=== PATIENT | female | born 1945 | race African-American/Black ===

== ENCOUNTER 2018-11-17 05:30 | Inpatient (IN) | payer OTHER ==
[2018-11-17] VITALS (26 sets, daily range): BP systolic 105–136; BP diastolic 51–69; PULSE 70–96; RESP 13–24; Ht 177.8 cm; Wt 90.7 kg
[~2018-11-17] VITALS: Ht 177.8 cm; Wt 90.7 kg
[~2018-11-17 05:30] MED LIST: CEFAZOLIN 2 GM/50 ML (PMX) 50 ML IVPB ONE; LACTATED RINGER'S 1,000 ML IV* ONE
[2018-11-17] MEDS ORDERED: METF100010 PO (06:58)
[2018-11-17] MEDS ORDERED: ACAR50TA PO (06:58)
[2018-11-17] MEDS ORDERED: ATOR10TA65 PO (06:59)
[2018-11-17] MEDS ORDERED: GELATIN SIZE 100 SPONGE ONE (06:59)
[2018-11-17] MEDS ORDERED: POLYMYXIN/BACITRACIN 1L IRRIG ONE (06:59)
[2018-11-17] MEDS ORDERED: BUPIVACAINE 0.25% (MPF) 30 ML INJ ONE (06:59)
[2018-11-17] MEDS ORDERED: SURGIFOAM POWDER 1 GM KIT ONE (06:59)
[2018-11-17] MEDS ORDERED: LISI10TA2 PO (06:59)
[2018-11-17] MEDS ORDERED: GLIP10TA14 PO (06:59)
[2018-11-17] MEDS ORDERED: THROMBIN (BOVINE) 5,000 UNIT VIAL TP ONE (06:59)
[2018-11-17] MEDS ORDERED: BUPIVACAINE 0.25%/EPI (SDV) 30 ML INJ ONE (06:59)
--- NOTE | 2018-11-17 07:10 | PREAC ---
Date/Time of Note Date/Time of Note DATE: 11/17/18 TIME: 07:05 Anesthesia Eval and Record Evaluation Time Pre-Procedure Interview DATE: 11/17/18 TIME: 07:05 Age 73 Sex female NPO: 8 hrs Preoperative diagnosis lumbar spinal stenosis L4-L5 Planned procedure Bilateral decompression laminectomy L4-L5 Past Medical History Past Medical History: Includes Cardio: HTN, Dyslipidemia Endo: Diabetes Renal: Other (left nephrectomy for renal CA on Lisinopril for CA) Surgery & Anesthesia Issues No known issue Meds Anticoagulation: No Beta Asad within 24 hr: No Reason Beta Asad not given: Pt. not on B-Asad Reported Medications Lisinopril* (Lisinopril*) 10 Mg Tablet, 10 MG PO DAILY, #30 TAB 11/17/18 Atorvastatin Calcium (Atorvastatin Calcium) 10 Mg Tablet, 10 MG PO QHS, #30 TAB 11/17/18 Glipizide* (Glipizide*) 10 Mg Tablet, 20 MG PO BID, TAB 11/17/18 Acarbose* (Precose*) 50 Mg Tablet, 50 MG PO BID WITH MEALS, TAB 11/17/18 Metformin Hcl* (Metformin Hcl*) 1,000 Mg Tablet, 1000 MG PO WITH BREAKFAST DINNE, #60 TAB 11/17/18 Current Medications Lactated Ringer's 1,000 ml @ 25 mls/hr Q24H ONCE IV* ; Start 11/17/18 at 05:30; Stop 11/18/18 at 05:29 Meds reviewed: Yes Allergies Coded Allergies: No Known Allergy (Unverified , 11/17/18) Allergies Reviewed: Yes Labs/Studies Labs Reviewed: Reviewed by anesthesiologist test: N/A Studies: ECG Pre-procedure Exam Airway: Adequate mouth opening, Adequate thyromental dist Mallampati: Mallampati II Teeth: Normal Lung: Normal Heart: Normal ASA Physical Status ASA physical status: 3 Emergency: None Planned Anesthetic General/MAC: ETT Planned Pain Management Parenteral pain med, Local by surgeon Pre-operative Attestations Prior to commencing anesthesia and surgery, the patient was re-evaluated, there was verification of: *The patient's identity *The results of appropriate recent lab work and preoperative vital signs *The above evaluation not changing prior to induction *Anesthetic plan, risk benefits, alternative and complications discussed with pa olvinnt/family; questions answered; patient/family understands, accepts and wishes to proceed. ALTA LEMUS FIBER LOCKING SUPERVISOR Nov 17, 2018 07:10
--- NOTE | 2018-11-17 07:36 | HPN ---
Date/Time of Note Date/Time of Note DATE: 11/17/18 TIME: 07:36 Interval H&P Admission Note Pt. seen H&P reviewed: No system changes JACKIE PEÑA MD Nov 17, 2018 07:36
[2018-11-17] MEDS ORDERED: FENTAnyl 50 MCG/ML VIAL ONE ×2 (07:41→07:52)
[2018-11-17] MEDS: SOD CHLORIDE 0.9% 1,000 ML IV SCH ×2 (08:00→19:10)
[2018-11-17] MEDS ORDERED: HYDROmorphONE 2 MG/ML SYG ONE (08:20)
[2018-11-17] MEDS ORDERED: FAMOTIDINE 20 MG INJ ONE (09:44)
[2018-11-17] MEDS ORDERED: LIDOCAINE 2% (SDV) 5 ML INJ ONE (09:44)
[2018-11-17] MEDS ORDERED: ROCURONIUM 50 MG INJ ONE (09:44)
[2018-11-17] MEDS ORDERED: PROPOFOL 40 ML ONE (09:44)
[2018-11-17] MEDS ORDERED: ONDANSETRON 4 MG INJ ONE (09:44)
[2018-11-17] MEDS ORDERED: SUCCINYLCHOLINE CHLORIDE 100 MG/5 ML SYG IV ONE (09:44)
[2018-11-17] MEDS ORDERED: DEXAMETHASONE 4 MG/ML 5 ML INJ ONE (09:44)
[2018-11-17] MEDS ORDERED: NEOSTIGMINE 3 MG/3 ML SYRINGE ONE (09:44)
[2018-11-17] MEDS ORDERED: GLYCOPYRROLATE 0.4 MG INJ ONE (09:44)
[2018-11-17] MEDS ORDERED: PHENYLephrine (100 MCG/ML) 10ML SYG ONE (10:50)
[2018-11-17] MEDS ORDERED: EPHEDrine 25 MG/5 ML SYG ONE (10:50)
--- NOTE | 2018-11-17 11:21 | OPR ---
Date/Time of Note Date/Time of Note DATE: 11/17/18 TIME: 11:15 Operative Report Free Text/Dictation DATE OF OPERATION: 11/17/2018 PREOPERATIVE DIAGNOSES: 1. L3-4 spinal stenosis with neurogenic claudication 2. L4-5 spinal stenosis with neurogenic claudication POSTOPERATIVE DIAGNOSES: 1. L3-4 spinal stenosis with neurogenic claudication 2. L4-5 spinal stenosis with neurogenic claudication OPERATION PERFORMED: 1. L3-4 bilateral laminectomy, medial facetectomy, and foraminotomy 2. L4-5 bilateral laminectomy, medial facetectomy, and foraminotomy SURGEON: Durga Chandler MD COVER MAT MACHINE OPERATOR: Pato Chester MD ANESTHESIA: General endotracheal ESTIMATED BLOOD LOSS: 75 mL SURGICAL INDICATION: The patient is a 73 year-old female who presents with a chronic history of worsening bilateral lower extremity pain that is exacerbated with walking and relieved with rest and lumbar flexion. The patient was unable to ambulate significant distances secondary to their pain. Risks, benefits, and alternatives to a decompressive procedure including but not exclusive of risks of bleeding, infection, nerve injury, cauda equina syndrome, iatrogenic instability, dural tear, myocardial infarction, stroke, pulmonary embolism were explained to the patient, and she wished to proceed. DESCRIPTION OF TECHNIQUE: The patient was identified in the preoperative area and taken to the operating room. Rapid induction of general endotracheal anesthesia was performed. Patient was given 2 g of cefazolin for prophylaxis. The patient was then placed in the prone position on the Apolinar table on top of a Triston frame with all bony prominences well padded. The back was prepped and draped in usual sterile manner. Using a spinal needle and intraoperative fluoroscopy, the L4-5 level was clearly identified. The skin was injected using 0.25% Marcaine with epinephrine. Longitudinal midline incision was then created using a 10 blade. Further dissection through soft tissue was performed using electrocautery down to the spinous processes bilaterally. Dissection was taken down the bilateral lamina and over the facet joint capsule. A self-retaining retractor was applied. Again, intraoperative fluoroscopy confirmed the level. A rongeur was used to remove the L4 spinous process and the interspinous ligaments. We identified the interlaminar window. The microscope was brought into use for microdissection. The high-speed bur was used to thin the L4 lamina. Kerrison rongeurs were then used to resect a the lamina, and a portion of the bilateral medial facets and the bone overlying the foramens. Ligamentum flavum was also resected using the Kerrison rongeurs. Care was taken to protect the thecal sac throughout the decompressive procedure. Palpation with a ball-tip probe did not reveal any further stenosis in the central, subarticular, or foraminal areas. The bilateral L4 and L5 pedicles were palpated using a shreya to ensure a pedicle to pedicle decompression. The exiting L4 nerve root and traversing L5 nerve roots were both directly visualized and noted to be decompressed. The cephalad and caudad extent of the decompression were also confirmed using ball-tip probes and intraoperative fluoroscopy. Dissection was the extended proximally to the L3-4 level. A self-retaining retractor was applied. Again, intraoperative fluoroscopy confirmed the level. A rongeur was used to remove a portion of the L3 spinous process and the interspinous ligaments. We identified the interlaminar window. The microscope was brought into use for microdissection. The high-speed bur was used to thin the L3 lamina. Kerrison rongeurs were then used to resect a the lamina, and a portion of the bilateral medial facets and the bone overlying the foramens. Ligamentum flavum was also resected using the Kerrison rongeurs. Care was taken to protect the thecal sac throughout the decompressive procedure. Palpation with a ball-tip probe did not reveal any further stenosis in the central, subarticular, or foraminal areas. The bilateral L3 and L4 pedicles were palpated using a shreya to ensure a pedicle to pedicle decompression. The exiting L3 nerve root and traversing L4 nerve roots were both directly visualized and noted to be decompressed. The cephalad and caudad extent of the decompression were also confirmed using ball-tip probes and intraoperative fluoroscopy. The wound was irrigated copiously using normal saline. Meticulous attention was paid toward hemostasis using bipolar cautery, FloSeal and thrombin. Care was taken to remove all FloSeal prior to wound closure. The fascia was then closed using 0 Vicryl in interrupted fashion. A medium hemovac was placed. Subcutaneous tissue was closed using 2-0 Vicryl in interrupted fashion. Skin was closed using a running 4-0 Monocryl stitch. The wound was dressed using Dermabond, sterile gauze and Tegaderm. The patient was returned to the supine position. They were extubated immediately postoperatively and taken to the recovery room in stable condition. COMPLICATIONS: None. Procedure Date: Nov 17, 2018 Preoperative Diagnosis 1. L3-4 spinal stenosis with neurogenic claudication 2. L4-5 spinal stenosis with neurogenic claudication Postoperative Diagnosis 1. L3-4 spinal stenosis with neurogenic claudication 2. L4-5 spinal stenosis with neurogenic claudication Operation/Procedure Performed 1. L3-4 bilateral laminectomy, medial facetectomy, and foraminotomy 2. L4-5 bilateral laminectomy, medial facetectomy, and foraminotomy Surgeon see signature line Track Repair Laborer Pato Chester MD Anesthesia Type: general Estimated Blood Loss: 50 - 100 ml's Transfusion none Specimen none Grafts/Implants none Complications none Pt Condition Post Procedure: stable Disposition: PACU Procedure Description DESCRIPTION OF TECHNIQUE: The patient was identified in the preoperative area and taken to the operating room. Rapid induction of general endotracheal anesthesia was performed. Patient was given 2 g of cefazolin for prophylaxis. The patient was then placed in the prone position on the Apolinar table on top of a Triston frame with all bony prominences well padded. The back was prepped and draped in usual sterile manner. Using a spinal needle and intraoperative fluoroscopy, the L4-5 level was clearly identified. The skin was injected using 0.25% Marcaine with epinephrine. Longitudinal midline incision was then created using a 10 blade. Further dis section through soft tissue was performed using electrocautery down to the spinous processes bilaterally. Dissection was taken down the bilateral lamina and over the facet joint capsule. A self-retaining retractor was applied. Again, intraoperative fluoroscopy confirmed the level. A rongeur was used to remove the L4 spinous process and the interspinous ligaments. We identified the interlaminar window. The microscope was brought into use for microdissection. The high-speed bur was used to thin the L4 lamina. Kerrison rongeurs were then used to resect a the lamina, and a portion of the bilateral medial facets and the bone overlying the foramens. Ligamentum flavum was also resected using the Kerrison rongeurs. Care was taken to protect the thecal sac throughout the decompressive procedure. Palpation with a ball-tip probe did not reveal any further stenosis in the central, subarticular, or foraminal areas. The bilateral L4 and L5 pedicles were palpated using a shreya to ensure a pedicle to pedicle decompression. The exiting L4 nerve root and traversing L5 nerve roots were both directly visualized and noted to be decompressed. The cephalad and caudad extent of the decompression were also confirmed using ball-tip probes and intraoperative fluoroscopy. Dissection was the extended proximally to the L3-4 level. A self-retaining retractor was applied. Again, intraoperative fluoroscopy confirmed the level. A rongeur was used to remove a portion of the L3 spinous process and the interspinous ligaments. We identified the interlaminar window. The microscope was brought into use for microdissection. The high-speed bur was used to thin the L3 lamina. Kerrison rongeurs were then used to resect a the lamina, and a portion of the bilateral medial facets and the bone overlying the foramens. Ligamentum flavum was also resected using the Kerrison rongeurs. Care was taken to protect the thecal sac throughout the decompressive procedure. Palpation with a ball-tip probe did not reveal any further stenosis in the central, subarticular, or foraminal areas. The bilateral L3 and L4 pedicles were palpated using a shreya to ensure a pedicle to pedicle decompression. The exiting L3 nerve root and traversing L4 nerve roots were both directly visualized and noted to be decompressed. The cephalad and caudad extent of the decompression were also confirmed using ball-tip probes and intraoperative fluoroscopy. The wound was irrigated copiously using normal saline. Meticulous attention was paid toward hemostasis using bipolar cautery, FloSeal and thrombin. Care was taken to remove all FloSeal prior to wound closure. The fascia was then closed using 0 Vicryl in interrupted fashion. A medium hemovac was placed. Subcutaneous tissue was closed using 2-0 Vicryl in interrupted fashion. Skin was closed using a running 4-0 Monocryl stitch. The wound was dressed using Dermabond, sterile gauze and Tegaderm. The patient was returned to the supine position. They were extubated immediately postoperatively and taken to the recovery room in stable condition. COMPLICATIONS: None. DURGA CHANDLER MD Nov 17, 2018 11:21
[2018-11-17] MEDS ORDERED: HYDROCODONE/APAP (5/325) TAB PO PRN (11:30)
[2018-11-17] MEDS ORDERED: AL HYDROX/MG HYDROX/SIMETH 30 ML CUP PO PRN (11:30)
[2018-11-17] MEDS ORDERED: NALOXONE (0.4 MG/ML) INJ IV PRN (11:30)
[2018-11-17] MEDS ORDERED: ACETAMINOPHEN 325 MG TAB PO PRN (11:30)
[2018-11-17] MEDS ORDERED: ONDANSETRON 4 MG INJ IV PRN (11:30)
[2018-11-17] MEDS ORDERED: NACL 0.9% 3 ML SYG IV SCH (11:30)
[2018-11-17] MEDS ORDERED: PROCHLORPERAZINE 10 MG TAB PO PRN (11:30)
--- NOTE | 2018-11-17 11:30 | PAC ---
Date/Time of Note Date/Time of Note DATE: 11/17/18 TIME: 11:29 Post-Anesthesia Notes Post-Anesthesia Note Last documented vital signs 11:23 113/53 Sp02 100% HR 82 RR 14 T 99.2F Activity: WNL Respiratory function: WNL Cardiovascular function: WNL Mental status: Baseline Pain reasonably controlled: Yes Hydration appropriate: Yes Nausea/Vomiting absent: Yes ALTA LEMUS CRNA Nov 17, 2018 11:30
[2018-11-17] MEDS: HYDROmorphONE 0.2 MG/ML PCA IV SCH (11:52)
[2018-11-17] MEDS ORDERED: MEPERIDINE 25 MG INJ ONE (12:17)
[2018-11-17] MEDS ORDERED: MEPERIDINE 25 MG INJ IV PRN (12:30)
[2018-11-17] MEDS ORDERED: HYDROmorphONE 1 MG/5 ML IV SYRINGE IV PRN ×3 (12:30)
[2018-11-17] MEDS: CEFAZOLIN 1 GM/50 ML (PMX) 50 ML IVPB SCH ×3 (12:30→23:44)
--- NOTE | 2018-11-17 13:10 | PN ---
Date/Time of Note Date/Time of Note DATE: 11/17/18 TIME: 13:07 Assessment/Plan VTE Prophylaxis SCD applied (from Nsg): Yes Pharmacological prophylaxis: NA/contraindicated Pharm contraindication: surgical contra Lines/Catheters IV Catheter Type (from Nrsg): Peripheral IV Assessment/Plan Results 24hrs Laboratory Tests Test 11/17/18 07:05 11/17/18 11:28 Bedside Glucose 110 100 Subjective 24 Hr Interval Summary Free Text/Dictation 73 yr old woman, seen by me preop. now post op back surgery with decompression as noted in op report. drains in. seen on arrival to floor, co pain. moves all fouir, ehl appear strong. vs ok. hx positive for hbp and diabetes, on oral agents.preop ha1c elevated at 8.1 will return to re evaluate later today Musculoskeletal: back pain Exam/Review of Systems Exam Vitals Vital Signs Date Temp Pulse Resp B/P (MAP) Pulse Ox O2 O2 Flow FiO2 Time Delivery Rate 11/17/18 92 20 111/55 99 Nasal 12:43 (73) Cannula 11/17/18 99.2 11:28 Results Results 24hrs Laboratory Tests Test 11/17/18 07:05 11/17/18 11:28 Bedside Glucose 110 100 Medications Medication Current Medications Sodium Chloride 1,000 ml @ 25 mls/hr Q24H IV ; Start 11/17/18 at 08:00; Stop 11/17/18 at 23:59 Acetaminophen/ Hydrocodone Bitart ([place] (5/325)) 1 tab Q4H PRN PO .PAIN 1-5; Start 11/17/18 at 11:30 Acetaminophen/ Hydrocodone Bitart ([place] (5/325)) 2 tab Q4H PRN PO .PAIN 6-10; Start 11/17/18 at 11:30 Cefazolin Sodium 50 ml @ 100 mls/hr Q6 IVPB Last administered on 11/17/18at 12:30; Admin Dose 100 MLS/HR; Start 11/17/18 at 12:00; Stop 11/18/18 at 06:29 Prochlorperazine (Compazine) 10 mg Q4H PRN PO NAUSEA/VOMITING; Start 11/17/18 at 11:30 Ondansetron HCl (Zofran Inj) 4 mg Q6H PRN IV NAUSEA/VOMITING Last administered on 11/17/18at 12:33; Admin Dose 4 MG; Start 11/17/18 at 11:30 Al Hydrox/Mg Hydrox/Simethicone (Mag-Al Plus) 15 ml Q4H PRN PO .CONSTIPATION; Start 11/17/18 at 11:30 Docusate Sodium (Colace) 100 mg BID PO ; Start 11/18/18 at 09:00 Acetaminophen (Tylenol Tab) 650 mg Q4H PRN PO TEMP GREATER THAN 101F OR VAZQUEZ; Start 11/17/18 at 11:30 IV Flush (NS 3 ml) 3 ml PER PROTOCOL IV ; Start 11/17/18 at 11:30 Hydromorphone HCl (Dilaudid JUNIOR ENGINEER) Q4PCA IV Last administered on 11/17/18at 11:52; Admin Dose 0.2 MG; Start 11/17/18 at 11:30 Naloxone HCl (Narcan) 0.2 mg Q2M PRN IV RR 8 BREATHS/MIN OR LESS; Start 11/17/18 at 11:30 Hydromorphone HCl (Dilaudid) 0.2 mg PACU PRN IV MILD PAIN 1-3; Start 11/17/18 at 12:30; Stop 11/17/18 at 16:00 Hydromorphone HCl (Dilaudid) 0.4 mg PACU PRN IV MOD PAIN 4-6; Start 11/17/18 at 12:30; Stop 11/17/18 at 16:00 Hydromorphone HCl (Dilaudid) 0.6 mg PACU PRN IV SEVERE PAIN 7-10 Last administered on 11/17/18at 12:37; Admin Dose 0.6 MG; Start 11/17/18 at 12:30; Stop 11/17/18 at 16:00 Meperidine HCl (Demerol) 25 mg PACU ORDER PRN IV .RIGORS Last administered on 11/17/18at 12:32; Admin Dose 25 MG; Start 11/17/18 at 12:30; Stop 11/17/18 at 16:00 JERRY ENCARNACION MD Nov 17, 2018 13:10
--- NOTE | 2018-11-17 15:56 | PN ---
Date/Time of Note Date/Time of Note DATE: 11/17/18 TIME: 15:54 Assessment/Plan VTE Prophylaxis Risk score (from Nsg)>0 risk: 6 SCD applied (from Nsg): Yes Pharmacological prophylaxis: NA/contraindicated Pharm contraindication: surgical contra Lines/Catheters IV Catheter Type (from Nrsg): Peripheral IV Urinary Cath still in place: Yes Reason Cath still needed: other (indicate) (post op lami) Assessment/Plan Results 24hrs Laboratory Tests Test 11/17/18 07:05 11/17/18 11:28 Bedside Glucose 110 100 Subjective 24 Hr Interval Summary Free Text/Dictation late addition meds reconciled, accucheck bid ac, no coverage as is on rel high dose gypizide from usual md...will follow and see she is alert now, not much pain with oral therapist. preop leg pain mostly resolved. vs ok. walked with pt. good strength ehl bilaterally doing well postg op Musculoskeletal: bone/joint pain Exam/Review of Systems Exam Vitals Vital Signs Date Temp Pulse Resp B/P (MAP) Pulse Ox O2 O2 Flow FiO2 Time Delivery Rate 11/17/18 98.2 96 19 121/57 98 Nasal 13:16 (78) Cannula Results Results 24hrs Laboratory Tests Test 11/17/18 07:05 11/17/18 11:28 Bedside Glucose 110 100 Medications Medication Current Medications Sodium Chloride 1,000 ml @ 25 mls/hr Q24H IV ; Start 11/17/18 at 08:00; Stop 11/17/18 at 23:59 Acetaminophen/ Hydrocodone Bitart ([place] (5/325)) 1 tab Q4H PRN PO .PAIN 1-5; Start 11/17/18 at 11:30 Acetaminophen/ Hydrocodone Bitart ([place] (5/325)) 2 tab Q4H PRN PO .PAIN 6-10; Start 11/17/18 at 11:30 Cefazolin Sodium 50 ml @ 100 mls/hr Q6 IVPB Last administered on 11/17/18at 12:30; Admin Dose 100 MLS/HR; Start 11/17/18 at 12:00; Stop 11/18/18 at 06:29 Prochlorperazine (Compazine) 10 mg Q4H PRN PO NAUSEA/VOMITING; Start 11/17/18 at 11:30 Ondansetron HCl (Zofran Inj) 4 mg Q6H PRN IV NAUSEA/VOMITING Last administered on 11/17/18at 12:33; Admin Dose 4 MG; Start 11/17/18 at 11:30 Al Hydrox/Mg Hydrox/Simethicone (Mag-Al Plus) 15 ml Q4H PRN PO .CONSTIPATION; Start 11/17/18 at 11:30 Docusate Sodium (Colace) 100 mg BID PO ; Start 11/18/18 at 09:00 Acetaminophen (Tylenol Tab) 650 mg Q4H PRN PO TEMP GREATER THAN 101F OR VAZQUEZ; Start 11/17/18 at 11:30 IV Flush (NS 3 ml) 3 ml PER PROTOCOL IV ; Start 11/17/18 at 11:30 Hydromorphone HCl (Dilaudid OIL BAY TECHNICIAN) Q4PCA IV Last administered on 11/17/18at 11:52; Admin Dose 0.2 MG; Start 11/17/18 at 11:30 Naloxone HCl (Narcan) 0.2 mg Q2M PRN IV RR 8 BREATHS/MIN OR LESS; Start 11/17/18 at 11:30 Hydromorphone HCl (Dilaudid) 0.2 mg PACU PRN IV MILD PAIN 1-3; Start 11/17/18 at 12:30; Stop 11/17/18 at 16:00 Hydromorphone HCl (Dilaudid) 0.4 mg PACU PRN IV MOD PAIN 4-6; Start 11/17/18 at 12:30; Stop 11/17/18 at 16:00 Hydromorphone HCl (Dilaudid) 0.6 mg PACU PRN IV SEVERE PAIN 7-10 Last administered on 11/17/18at 12:37; Admin Dose 0.6 MG; Start 11/17/18 at 12:30; Stop 11/17/18 at 16:00 Meperidine HCl (Demerol) 25 mg PACU ORDER PRN IV .RIGORS Last administered on 11/17/18at 12:32; Admin Dose 25 MG; Start 11/17/18 at 12:30; Stop 11/17/18 at 16:00 Acarbose (Precose) 50 mg BID WITH MEALS PO ; Start 11/17/18 at 17:55; Status UNV Atorvastatin Calcium (Lipitor) 10 mg QHS PO ; Start 11/17/18 at 21:00; Status UNV Glipizide (Glucotrol) 20 mg BID PO ; Start 11/17/18 at 21:00; Status UNV Lisinopril (Zestril) 10 mg DAILY PO ; Start 11/18/18 at 09:00; Status UNV Metformin HCl (Glucophage) 1,000 mg WITH BREAKFAST DINNE PO ; Start 11/17/18 at 17:55; Status UNV Diagnostic Test (Pha) (Accu-Chek) 1 ea AC BREAKFAST DINNER XX ; Start 11/17/18 at 17:25; Status UNV JERRY ENCARNACION MD Nov 17, 2018 15:56
[2018-11-17] MEDS ORDERED: GLUCAGON 1 MG INJ IM PRN (17:00)
[2018-11-17] MEDS ORDERED: GLUCOSE GEL 15 GRAM TUBE BUCCAL PRN (17:00)
[2018-11-17] MEDS ORDERED: GLUCOSE GEL 15 GRAM TUBE PO PRN ×2 (17:00)
[2018-11-17] MEDS ORDERED: DEXTROSE 50% 50 ML SYRINGE IV PRN ×2 (17:00)
[2018-11-17] MEDS: ACCU-CHEK XX SCH (17:59)
[2018-11-17] MEDS: metFORMIN 500 MG TAB PO SCH (18:09)
[2018-11-17] MEDS: ACARBOSE 50 MG TAB PO SCH (18:49)
[2018-11-17] MEDS ORDERED: glipiZIDE 10 MG TAB PO SCH (21:00)
[2018-11-17] MEDS: ATORVASTATIN 10 MG TAB PO SCH (21:09)
[2018-11-18 00:11] VITALS: BP 102/56; PULSE 76; RESP 18
[2018-11-18] MEDS: HYDROmorphONE 0.2 MG/ML PCA IV SCH (01:18)
[2018-11-18 04:19] VITALS: BP 104/54; PULSE 74; RESP 18
[2018-11-18] MEDS: CEFAZOLIN 1 GM/50 ML (PMX) 50 ML IVPB SCH (05:04)
[2018-11-18 07:25] VITALS: BP 105/53; PULSE 78; RESP 18
[2018-11-18] MEDS: metFORMIN 500 MG TAB PO SCH ×2 (09:05→17:51)
[2018-11-18] MEDS: DOCUSATE SODIUM 100 MG CAP PO SCH ×2 (09:06→20:06)
[2018-11-18] MEDS: glipiZIDE 10 MG TAB PO SCH ×2 (09:06→17:51)
[2018-11-18] MEDS: ACARBOSE 50 MG TAB PO SCH ×2 (09:06→17:51)
[2018-11-18] MEDS: LISINOPRIL 10 MG TAB PO SCH (09:07)
[2018-11-18] MEDS: ACCU-CHEK XX SCH ×2 (09:07→17:50)
[2018-11-18] MEDS: HYDROCODONE/APAP (5/325) TAB PO PRN ×3 (10:26→18:29)
--- NOTE | 2018-11-18 13:28 | CONS ---
Consultation Date/Type/Reason Admit Date/Time Nov 17, 2018 at 05:30 Initial Consult Date Date/Time of Note DATE: 11/18/18 TIME: 13:26 24 HR Interval Summary Free Text/Dictation S: 73 yo Female POD#1 s/p L3-L5 decompression. No acute events. PROBATION SUPERVISOR has been D/C. Working well with PT. O: Vital Signs Date Temp Pulse Resp B/P (MAP) Pulse Ox O2 O2 Flow FiO2 Time Delivery Rate 11/18/18 18 10:40 11/18/18 98.4 78 105/53 99 07:25 (70) 11/17/18 Nasal 2.0 16:00 Cannula Gen: AAOx3, NAD Spine: 5/5 b/l TA/GS/EHL, +SILT L3-S1, dressing C/D/I A/P:73 yo Female POD#1 s/p L3-L5 decompression. 1. Drain w/ 160 cc output will likely d/c cj 2. pain control w/ PO Yeoman 3. Dispo planning tomorrow oncle cleared by PT and drain D/C Exam/Review of Systems Exam Vitals Vital Signs Date Temp Pulse Resp B/P (MAP) Pulse Ox O2 O2 Flow FiO2 Time Delivery Rate 11/18/18 18 10:40 11/18/18 98.4 78 105/53 99 07:25 (70) 11/17/18 Nasal 2.0 16:00 Cannula Intake and Output 11/17/18 11/17/18 11/18/18 1515:00 23:00 07:00 IntakeIntake Total 1000 ml 650 ml 100 ml OutputOutput Total 317 ml 100 ml 940 ml BalanceBalance 683 ml 550 ml -840 ml Results Result Diagram: 11/18/18 0427 11/18/18 0427 Results 24hrs Laboratory Tests Test 11/17/18 17:54 11/17/18 21:15 11/18/18 04:27 11/18/18 07:52 Bedside Glucose 235 H 220 White Blood Count 13.6 H Red Blood Count 3.88 L Hemoglobin 10.9 L Hematocrit 34.4 L Mean Corpuscular 88.7 Volume Mean Corpuscular 28.1 L Hemoglobin Mean Corpuscular 31.7 L Hemoglobin Concent Red Cell 13.2 Distribution Width Platelet Count 279 Mean Platelet 9.8 Volume Immature 0.400 Granulocytes % Neutrophils % 65.3 Lymphocytes % 25.3 Monocytes % 8.3 Eosinophils % 0.3 Basophils % 0.4 Nucleated Red 0.0 Blood Cells % Immature 0.050 H Granulocytes # Neutrophils # 8.9 H Lymphocytes # 3.4 H Monocytes # 1.1 H Eosinophils # 0.0 Basophils # 0.1 Nucleated Red 0.0 Blood Cells # Sodium Level 143 Potassium Level 4.6 Chloride Level 108 Carbon Dioxide 28 Level Anion Gap 7 Blood Urea 24 H Nitrogen Creatinine 0.74 Est Glomerular Filtrat Rate mL/min Glucose Level 109 Calcium Level 9.5 Lab Scanned Report REFERENCE LAB Test 11/18/18 09:04 Bedside Glucose 119 Medications Medication Current Medications Acetaminophen/ Hydrocodone Bitart ([place] (5/325)) 1 tab Q4H PRN PO .PAIN 1-5; Start 11/17/18 at 11:30 Acetaminophen/ Hydrocodone Bitart ([place] (5/325)) 2 tab Q4H PRN PO .PAIN 6-10 Last administered on 11/18/18at 10:26; Admin Dose 2 TAB; Start 11/17/18 at 11:30 Prochlorperazine (Compazine) 10 mg Q4H PRN PO NAUSEA/VOMITING; Start 11/17/18 at 11:30 Ondansetron HCl (Zofran Inj) 4 mg Q6H PRN IV NAUSEA/VOMITING Last administered on 11/17/18at 12:33; Admin Dose 4 MG; Start 11/17/18 at 11:30 Al Hydrox/Mg Hydrox/Simethicone (Mag-Al Plus) 15 ml Q4H PRN PO .CONSTIPATION; Start 11/17/18 at 11:30 Docusate Sodium (Colace) 100 mg BID PO Last administered on 11/18/18at 09:06; Admin Dose 100 MG; Start 11/18/18 at 09:00 Acetaminophen (Tylenol Tab) 650 mg Q4H PRN PO TEMP GREATER THAN 101F OR VAZQUEZ; Start 11/17/18 at 11:30 IV Flush (NS 3 ml) 3 ml PER PROTOCOL IV ; Start 11/17/18 at 11:30 Naloxone HCl (Narcan) 0.2 mg Q2M PRN IV RR 8 BREATHS/MIN OR LESS; Start 11/17/18 at 11:30 Acarbose (Precose) 50 mg BID WITH MEALS PO Last administered on 11/18/18 09:06; Admin Dose 50 MG; Start 11/17/18 at 17:55 Atorvastatin Calcium (Lipitor) 10 mg QHS PO Last administered on 11/17/18 21:09; Admin Dose 10 MG; Start 11/17/18 at 21:00 Lisinopril (Zestril) 10 mg DAILY PO Last administered on 11/18/18 09:07; Admin Dose 10 MG; Start 11/18/18 at 09:00 Metformin HCl (Glucophage) 1,000 mg WITH BREAKFAST DINNE PO Last administered on 11/18/18 09:05; Admin Dose 1,000 MG; Start 11/17/18 at 17:55 Diagnostic Test (Pha) (Accu-Chek) 1 ea AC BREAKFAST DINNER XX Last administered on 11/18/18 09:07; Admin Dose 1 EA; Start 11/17/18 at 17:25 Miscellaneous Information 1 ea NOTE XX ; Start 11/17/18 at 17:00 Glucose (Glutose) 15 gm Q15M PRN PO DECREASED GLUCOSE; Start 11/17/18 at 17:00 Glucose (Glutose) 22.5 gm Q15M PRN PO DECREASED GLUCOSE; Start 11/17/18 at 17:00 Dextrose (D50w Syringe) 25 ml Q15M PRN IV DECREASED GLUCOSE; Start 11/17/18 at 17:00 Dextrose (D50w Syringe) 50 ml Q15M PRN IV DECREASED GLUCOSE; Start 11/17/18 at 17:00 Glucagon (Glucagen) 1 mg Q15M PRN IM DECREASED GLUCOSE; Start 11/17/18 at 17:00 Glucose (Glutose) 15 gm Q15M PRN BUCCAL DECREASED GLUCOSE; Start 11/17/18 at 17:00 Glipizide (Glucotrol) 20 mg AC BREAKFAST DINNER PO Last administered on 09:06; Admin Dose 20 MG; Start 11/18/18 at 07:20 DURGA CHANDLER MD Nov 18, 2018 13:28
--- NOTE | 2018-11-18 13:29 | PDOCDIS ---
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 Chandler in 2 weeks DURGA CHANDLER MD Nov 18, 2018 13:29
--- NOTE | 2018-11-18 14:34 | CONS ---
Assessment/Plan Assessment/Plan Hospital Course (Demo Recall) Type 2 DM -continue metformin and glipizide -check FS AC and HS -few FS readings in the 200's -if frequent postprandial hyperglycemia will consider starting novolog correction scale HLD -continue atorvastatin HTN -continue lisinopril S/p L3-L5 decompression -continue PT -continue pain management -D/C per surgical team Consultation Date/Type/Reason Admit Date/Time Nov 17, 2018 at 05:30 Initial Consult Date Date/Time of Note DATE: 11/18/18 TIME: 14:33 24 HR Interval Summary Free Text/Dictation Patient seen and examined at bedside, she continues to undergo PT and pain is relatively well controlled. Exam/Review of Systems Exam Vitals Vital Signs Date Temp Pulse Resp B/P (MAP) Pulse Ox O2 O2 Flow FiO2 Time Delivery Rate 11/18/18 18 10:40 11/18/18 98.4 78 105/53 99 07:25 (70) 11/17/18 Nasal 2.0 16:00 Cannula Intake and Output 11/17/18 11/17/18 11/18/18 1515:00 23:00 07:00 IntakeIntake Total 1000 ml 650 ml 100 ml OutputOutput Total 317 ml 100 ml 940 ml BalanceBalance 683 ml 550 ml -840 ml Exam General: Comfortable in appearance, not in acute distress. Skin appropriate for ethnicity Eye: Extraocular movements are intact, Normal conjunctiva. HENT: Normocephalic, atraumatic. Respiratory: Respirations are non-labored, Breath sounds are equal, Symmetrical chest wall expansion. Cardiovascular: S1, S2. No murmur. No LE edema Gastrointestinal: Soft, Non-tender, Non-distended, Normal bowel sounds. Integumentary: Warm to touch. Drains in lower back Neurologic: Alert, Oriented. Cognition and Speech: Speech clear and coherent, Functional cognition intact. Psychiatric: Cooperative, Appropriate mood & affect. Results Result Diagram: 11/18/187 11/18/18426 Results 24hrs Laboratory Tests Test 11/17/18 17:54 11/17/18 21:15 11/18/18 04:27 11/18/18 07:52 Bedside Glucose 235 H 220 White Blood Count 13.6 H Red Blood Count 3.88 L Hemoglobin 10.9 L Hematocrit 34.4 L Mean Corpuscular 88.7 Volume Mean Corpuscular 28.1 L Hemoglobin Mean Corpuscular 31.7 L Hemoglobin Concent Red Cell 13.2 Distribution Width Platelet Count 279 Mean Platelet 9.8 Volume Immature 0.400 Granulocytes % Neutrophils % 65.3 Lymphocytes % 25.3 Monocytes % 8.3 Eosinophils % 0.3 Basophils % 0.4 Nucleated Red 0.0 Blood Cells % Immature 0.050 H Granulocytes # Neutrophils # 8.9 H Lymphocytes # 3.4 H Monocytes # 1.1 H Eosinophils # 0.0 Basophils # 0.1 Nucleated Red 0.0 Blood Cells # Sodium Level 143 Potassium Level 4.6 Chloride Level 108 Carbon Dioxide 28 Level Anion Gap 7 Blood Urea 24 H Nitrogen Creatinine 0.74 Est Glomerular Filtrat Rate mL/min Glucose Level 109 Calcium Level 9.5 Lab Scanned Report REFERENCE LAB Test 11/18/18 09:04 Bedside Glucose 119 Medications Medication Current Medications Acetaminophen/ Hydrocodone Bitart ([place] (5/325)) 1 tab Q4H PRN PO .PAIN 1-5; Start 11/17/18 at 11:30 Acetaminophen/ Hydrocodone Bitart ([place] (5/325)) 2 tab Q4H PRN PO .PAIN 6-10 Last administered on 11/18/18at 14:14; Admin Dose 2 TAB; Start 11/17/18 at 11:30 Prochlorperazine (Compazine) 10 mg Q4H PRN PO NAUSEA/VOMITING; Start 11/17/18 at 11:30 Ondansetron HCl (Zofran Inj) 4 mg Q6H PRN IV NAUSEA/VOMITING Last administered on 11/17/18at 12:33; Admin Dose 4 MG; Start 11/17/18 at 11:30 Al Hydrox/Mg Hydrox/Simethicone (Mag-Al Plus) 15 ml Q4H PRN PO .CONSTIPATION; Start 11/17/18 at 11:30 Docusate Sodium (Colace) 100 mg BID PO Last administered on 11/18/18at 09:06; Admin Dose 100 MG; Start 11/18/18 at 09:00 Acetaminophen (Tylenol Tab) 650 mg Q4H PRN PO TEMP GREATER THAN 101F OR VAZQUEZ; Start 11/17/18 at 11:30 IV Flush (NS 3 ml) 3 ml PER PROTOCOL IV ; Start 11/17/18 at 11:30 Naloxone HCl (Narcan) 0.2 mg Q2M PRN IV RR 8 BREATHS/MIN OR LESS; Start 11/17/18 at 11:30 Acarbose (Precose) 50 mg BID WITH MEALS PO Last administered on 11/18/18 09:0 6; Admin Dose 50 MG; Start 11/17/18 at 17:55 Atorvastatin Calcium (Lipitor) 10 mg QHS PO Last administered on 11/17/18at 21:09; Admin Dose 10 MG; Start 11/17/18 at 21:00 Lisinopril (Zestril) 10 mg DAILY PO Last administered on 11/18/18 09:07; Admin Dose 10 MG; Start 11/18/18 at 09:00 Metformin HCl (Glucophage) 1,000 mg WITH BREAKFAST DINNE PO Last administered on 11/18/18at 09:05; Admin Dose 1,000 MG; Start 11/17/18 at 17:55 Diagnostic Test (Pha) (Accu-Chek) 1 ea AC BREAKFAST DINNER XX Last administered on 11/18/18at 09:07; Admin Dose 1 EA; Start 11/17/18 at 17:25 Miscellaneous Information 1 ea NOTE XX ; Start 11/17/18 at 17:00 Glucose (Glutose) 15 gm Q15M PRN PO DECREASED GLUCOSE; Start 11/17/18 at 17:00 Glucose (Glutose) 22.5 gm Q15M PRN PO DECREASED GLUCOSE; Start 11/17/18 at 17:0 0 Dextrose (D50w Syringe) 25 ml Q15M PRN IV DECREASED GLUCOSE; Start 11/17/18 at 17:00 Dextrose (D50w Syringe) 50 ml Q15M PRN IV DECREASED GLUCOSE; Start 11/17/18 at 17:00 Glucagon (Glucagen) 1 mg Q15M PRN IM DECREASED GLUCOSE; Start 11/17/18 at 17:00 Glucose (Glutose) 15 gm Q15M PRN BUCCAL DECREASED GLUCOSE; Start 11/17/18 at 17:00 Glipizide (Glucotrol) 20 mg AC BREAKFAST DINNER PO Last administered on 11/18/18 09:06; Admin Dose 20 MG; Start 11/18/18 at 07:20 MEILIANA ZAMBRANO MD Nov 18, 2018 14:34
[2018-11-18 15:11] VITALS: BP 131/60; PULSE 92; RESP 18
[2018-11-18] MEDS: ATORVASTATIN 10 MG TAB PO SCH (20:06)
[2018-11-18 20:10] VITALS: BP 115/57; PULSE 91; RESP 18
[2018-11-19] MEDS: HYDROCODONE/APAP (5/325) TAB PO PRN ×3 (01:38→12:14)
[2018-11-19 02:04] VITALS: BP 125/60; PULSE 88; RESP 18
[2018-11-19 08:01] VITALS: BP 103/50; PULSE 89; RESP 18
[2018-11-19] MEDS: ACARBOSE 50 MG TAB PO SCH (08:05)
[2018-11-19] MEDS: glipiZIDE 10 MG TAB PO SCH (08:05)
[2018-11-19] MEDS: DOCUSATE SODIUM 100 MG CAP PO SCH (08:06)
[2018-11-19] MEDS: metFORMIN 500 MG TAB PO SCH (08:06)
[2018-11-19] MEDS: ACCU-CHEK XX SCH (08:07)
--- NOTE | 2018-11-19 08:35 | PN ---
Date/Time of Note Date/Time of Note DATE: 11/19/18 TIME: 08:32 Assessment/Plan VTE Prophylaxis Risk score (from Nsg)>0 risk: 4 SCD applied (from Nsg): Yes Pharmacological prophylaxis: NA/contraindicated Pharm contraindication: surgical contra Lines/Catheters IV Catheter Type (from Nrsg): Saline Lock Urinary Cath still in place: No Assessment/Plan Result Diagram: 11/18/18 0427 11/18/18 0427 Results 24hrs Laboratory Tests Test 11/18/18 09:04 11/18/18 17:50 11/19/18 08:03 Bedside Glucose 119 181 183 Subjective 24 Hr Interval Summary Free Text/Dictation medicine: doing well post op. walked well with p.t., leg pain resolved, still back soreness bp still sl low, holding bp meds diabetes moderately elevated blood sugars, will need to discuss meds w pcp when seen next visikt, for now leave as is if drain out today, probable discharge, ok from my standpoint alert, lungs clear, extg no edema, abd soplan:probable dc Musculoskeletal: back pain Exam/Review of Systems Exam Vitals Vital Signs Date Temp Pulse Resp B/P (MAP) Pulse Ox O2 O2 Flow FiO2 Time Delivery Rate 11/19/18 Nasal 1.0 08:22 Cannula 11/19/18 98.1 89 18 103/50 99 08:01 (67) Intake and Output 11/18/18 11/18/18 11/19/18 1515:00 23:00 07:00 OutputOutput Total 1050 ml 20 ml 20 ml BalanceBalance -1050 ml -20 ml -20 ml Results Results 24hrs Laboratory Tests Test 11/18/18 09:04 11/18/18 17:50 11/19/18 08:03 Bedside Glucose 119 181 183 Medications Medication Current Medications Acetaminophen/ Hydrocodone Bitart ([place] (5/325)) 1 tab Q4H PRN PO .PAIN 1-5; Start 11/17/18 at 11:30 Acetaminophen/ Hydrocodone Bitart ([place] (5/325)) 2 tab Q4H PRN PO .PAIN 6-10 Last administered on 11/19/18at 06:13; Admin Dose 2 TAB; Start 11/17/18 at 11:30 Prochlorperazine (Compazine) 10 mg Q4H PRN PO NAUSEA/VOMITING; Start 11/17/18 at 11:30 Ondansetron HCl (Zofran Inj) 4 mg Q6H PRN IV NAUSEA/VOMITING Last administered on 11/17/18at 12:33; Admin Dose 4 MG; Start 11/17/18 at 11:30 Al Hydrox/Mg Hydrox/Simethicone (Mag-Al Plus) 15 ml Q4H PRN PO .CONSTIPATION; Start 11/17/18 at 11:30 Docusate Sodium (Colace) 100 mg BID PO Last administered on 11/19/18 08:06; Admin Dose 100 MG; Start 11/18/18 at 09:00 Acetaminophen (Tylenol Tab) 650 mg Q4H PRN PO TEMP GREATER THAN 101F OR VAZQUEZ; Start 11/17/18 at 11:30 IV Flush (NS 3 ml) 3 ml PER PROTOCOL IV ; Start 11/17/18 at 11:30 Naloxone HCl (Narcan) 0.2 mg Q2M PRN IV RR 8 BREATHS/MIN OR LESS; Start 11/17/18 at 11:30 Acarbose (Precose) 50 mg BID WITH MEALS PO Last administered on 11/19/18 08:05; Admin Dose 50 MG; Start 11/17/18 at 17:55 Atorvastatin Calcium (Lipitor) 10 mg QHS PO Last administered on 11/18/18 20:06; Admin Dose 10 MG; Start 11/17/18 at 21:00 Lisinopril (Zestril) 10 mg DAILY PO Last administered on 11/18/18 09:07; Admin Dose 10 MG; Start 11/18/18 at 09:00 Metformin HCl (Glucophage) 1,000 mg WITH BREAKFAST DINNE PO Last administered on 11/19/18 08:06; Admin Dose 1,000 MG; Start 11/17/18 at 17:55 Diagnostic Test (Pha) (Accu-Chek) 1 ea AC BREAKFAST DINNER XX Last administered on 11/19/18 08:07; Admin Dose 1 EA; Start 11/17/18 at 17:25 Miscellaneous Information 1 ea NOTE XX ; Start 11/17/18 at 17:00 Glucose (Glutose) 15 gm Q15M PRN PO DECREASED GLUCOSE; Start 11/17/18 at 17:00 Glucose (Glutose) 22.5 gm Q15M PRN PO DECREASED GLUCOSE; Start 11/17/18 at 17:00 Dextrose (D50w Syringe) 25 ml Q15M PRN IV DECREASED GLUCOSE; Start 11/17/18 at 17:00 Dextrose (D50w Syringe) 50 ml Q15M PRN IV DECREASED GLUCOSE; Start 11/17/18 at 17:00 Glucagon (Glucagen) 1 mg Q15M PRN IM DECREASED GLUCOSE; Start 11/17/18 at 17:00 Glucose (Glutose) 15 gm Q15M PRN BUCCAL DECREASED GLUCOSE; Start 11/17/18 at 17:00 Glipizide (Glucotrol) 20 mg AC BREAKFAST DINNER PO Last administered on 11/19/18at 08:05; Admin Dose 20 MG; Start 11/18/18 at 07:20 Cyclobenzaprine HCl (Flexeril) 5 mg BID PO ; Start 11/19/18 at 09:00; Status JERRY BARTON MD November 19, 2018 08:35
[2018-11-19] MEDS: LISINOPRIL 10 MG TAB PO SCH (09:00)
[2018-11-19] MEDS ORDERED: CYCLOBENZAPRINE 10 MG TAB PO SCH (09:00)
== END 2018-11-19 14:17 | disposition home or self-care (01) | DRG 517 ==
LOC: REC 05:30 → MS1 12:47
PROVIDERS: ADMIT Orthopaedic Surgery; ATTEND Internal Medicine
PROC: 01NB0ZZ Release Lumbar Nerve, Open Approach (ICD-10-PCS; principal; 2018-11-17 07:30)
DX: M48.062 Spinal stenosis, lumbar region with neurogenic claudication (principal); E11.9 Type 2 diabetes mellitus without complications; E78.5 Hyperlipidemia, unspecified; I10 Essential (primary) hypertension; Z85.528 Personal history of other malignant neoplasm of kidney; Z90.5 Acquired absence of kidney
CPT/HCPCS: 72110; 80048; 82962; 85025; 87086; 97116; 97161; 97530; J0690; J1100; J1170; J2175; J2370; J2405; J2710; J3010; J7120